=== PATIENT | male | born 1980 | race Caucasian/White ===

== ENCOUNTER 2020-01-17 18:05 | Emergency (ER) | payer OTHER ==
[~2020-01-17] VITALS: Ht 170.2 cm; Wt 84.4 kg
[2020-01-17 18:10] VITALS: BP 154/79
--- NOTE | 2020-01-17 18:18 | NUR ---
PT AMBULATED TO BED 5.
--- NOTE | 2020-01-17 18:27 | NUR ---
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 PT WAS DRIVING AT THE TIME, PULLED OFF TO THE SIDE OF ROAD. HAD SOB DURING THOSE FEW MINUTES OF PANIC. DENIES CHEST PAIN. STATES HIS APPLE WATCH READ HR UP TO 160S WHILE SITTING. PT FEELS LIKE "SOMETHING BAD" WILL HAPPEN. HR 85, O2 SAT 98% AT TRIAGE. HAD PANIC ATTACKS YEARS IN THE PAST. MED HX: ANXIETY
[2020-01-17] MEDS ORDERED: LORazepam 0.5 MG TAB PO ONE (18:45)
[2020-01-17 19:09] LABS: BASOPHILS # (AUTO) 0.1 K/uL (0.00-0.22); BASOPHILS % (AUTO) 0.9 % (0.0-2.0); EOSINOPHILS # (AUTO) 0.3 K/uL (0-0.4); EOSINOPHILS % (AUTO) 6.2 % (0.0-4.0); HEMATOCRIT 39.8 % (36-52); HEMOGLOBIN 13.6 g/dL (12.0-18.0); LYMPHOCYTES # (AUTO) 1.6 K/uL (2.0-11.5); LYMPHOCYTES % (AUTO) 28.5 % (20.5-51.1); MEAN CORPUSCULAR HEMOGLOBIN 30 pg (27-31); MEAN CORPUSCULAR HGB CONC 34 g/dL (33-37); MEAN CORPUSCULAR VOLUME 87.8 fL (80-94); MONOCYTES # (AUTO) 0.5 K/uL (0.8-1.0); MONOCYTES % (AUTO) 8.8 % (1.7-9.3); NEUTROPHILS # (AUTO) 3.1 K/uL (1.8-7.7); NEUTROPHILS % (AUTO) 55.6 % (42.2-75.2); PLATELET COUNT (AUTO) 222 K/uL (140-450); RED BLOOD CELL COUNT(AUTO) 4.53 MIL/uL (4.20-6.10); RED CELL DISTRIBUTION WIDTH 13.4 % (11.6-13.7); WHITE BLOOD COUNT (AUTO) 5.5 K/uL (4.8-10.8)
--- NOTE | 2020-01-17 19:20 | NUR ---
REPORT RECEIVED FROM AURORA HELLER FOR CONTINUITY OF CARE
--- NOTE | 2020-01-17 19:20 | NUR ---
REPORT TO ARRON ARELLANO. TRANSFER OF CARE AT THIS TIME.
[2020-01-17 19:22] LABS: CARBON DIOXIDE 26.9 mmol/L (21-32); CREATININE 1.2 mg/dL (0.6-1.3); POTASSIUM 3.9 mmol/L (3.5-5.1)
[2020-01-17 19:28] LABS: ALBUMIN 3.9 g/dL (3.4-5.0); TOTAL BILIRUBIN 0.3 mg/dL (0.0-1.0)
--- NOTE | 2020-01-17 19:30 | NUR ---
X-Ray at bedside.
[2020-01-17 19:44] LABS: BARBITURATE, URINE NEGATIVE ng/ml (NEG <=200); BENZODIAZEPINE, URINE NEGATIVE ng/mL (NEG <=200); CANNABINOID, URINE NEGATIVE ng/mL (NEG <=50); COCAINE, URINE NEGATIVE ng/mL (NEG <=300); OPIATE, URINE NEGATIVE ng/mL (NEG <=2000); PHENCYCLIDINE SCREEN,URINE NEGATIVE ng/mL (NEG <=25)
[2020-01-17 20:05] LABS: FREE T4 (FREE THYROXINE) 0.8 ng/dL (0.76-1.46); THYROID STIMULATING HORMONE 0.99 uIU/mL (0.34-3.74)
[2020-01-17 20:35] VITALS: BP 133/78
== END 2020-01-17 20:35 | disposition home or self-care (01) ==
LOC: MED 18:05
DX: F41.9 Anxiety disorder, unspecified (principal); E86.0 Dehydration
CPT/HCPCS: 36415; 71045; 80053; 80305; 84439; 84443; 84484; 85025; 85379; 93005; 99285; Q0092

== ENCOUNTER 2023-02-24 18:27 | Emergency (ER) | payer OTHER ==
[~2023-02-24] VITALS: Ht 170.2 cm; Wt 86.2 kg
[2023-02-24 18:36] VITALS: BP 146/90; PULSE 76; RESP 15; TEMP 98; O2SAT 99
[2023-02-24 19:40] VITALS: PULSE 78
[2023-02-24] MEDS ORDERED: ATA25 PO (19:40)
[2023-02-24 19:48] VITALS: BP 166/96
== END 2023-02-24 19:48 | disposition home or self-care (01) ==
LOC: MED 18:27
DX: R00.2 Palpitations (principal); F41.9 Anxiety disorder, unspecified; Z98.890 Other specified postprocedural states
CPT/HCPCS: 93005; 99283

== ENCOUNTER 2023-04-03 23:37 | Emergency (ER) | payer OTHER ==
[~2023-04-03] VITALS: Ht 170.2 cm; Wt 85.3 kg
[~2023-04-03 23:37] MED LIST: ATA25 PO
[2023-04-03 23:49] VITALS: BP 128/83; PULSE 80; RESP 18; TEMP 97.1; O2SAT 99
[2023-04-04] MEDS ORDERED: LIDOCAINE MPF 1% 10 MG/ML VIAL INJ ONE (01:55)
[2023-04-04] MEDS ORDERED: BACITRACIN OINT 500 UNITS/GM PKT TP ONE (02:10)
== END 2023-04-04 02:21 | disposition home or self-care (01) ==
LOC: MED 23:37
DX: S61.216A Laceration without foreign body of right little finger without damage to nail, initial encounter (principal); Z79.899 Other long term (current) drug therapy; X58.XXXA Exposure to other specified factors, initial encounter; Y92.89 Other specified places as the place of occurrence of the external cause; Y93.89 Activity, other specified; Y99.8 Other external cause status
CPT/HCPCS: 12001; 73140; 99283; J2001; Q0092